=== PATIENT | male | born 1960 | race Caucasian/White ===

== ENCOUNTER 2020-01-31 09:19 | Outpatient (REF) | payer OTHER, SELFPAY ==
[2020-01-31 09:50] LABS: MANUAL DIFF FLAG NO
[2020-01-31 09:53] LABS: Basophils Absolute Auto 0.1 X10*3/uL (0.0-0.2); Basophils Percent Auto 0.8 % (0-2); Eosinophils Absolute Auto 0.2 X10*3/uL (0.0-0.4); Hematocrit 41.8 % (42-52); Hemoglobin 14.1 g/dl (14.0-18.0); Imm Gran Abs Auto 0.02 X10*3/uL (0.00-0.03); Imm Gran Pct Auto 0.3 % (0.0-0.4); Lymphocytes Absolute Auto 1.3 X10*3/uL (1.2-4.9); Lymphocytes Percent Auto 20.5 % (20-40); Mean Corpuscular HGB Conc 33.7 g/dl (31.0-36.0); Mean Corpuscular Hemoglobin 28.8 pg (27.0-33.0); Mean Corpuscular Volume 85.3 fL (80-98); Mean Platelet Volume 10.9 fL (9.4-12.4); Monocytes Absolute Auto 0.6 X10*3/uL (0.1-1.2); Neutrophils Percent Auto 65.4 % (45-73); Platelet Count 246 X10*3/uL (160-400); Red Cell Distribution Width 12.9 % (11.0-16.0); White Blood Count 6.1 X10*3/uL (4.8-10.8)
[2020-01-31 10:01] LABS: Glucose Urine UA 500 MG/DL (NEG); Leukocyte Esterase Urine NEG (NEG); Nitrite Urine NEG (NEG); Specific Gravity - Urine 1.025 (1.005-1.025); Urine Blood NEG (NEG); Urine Ketones NEG (NEG); Urine Protein 1+ MG/DL (NEG-TRACE)
[2020-01-31 10:07] LABS: Appearance Urine CLEAR; Color Urine YELLOW
[2020-01-31 10:17] LABS: Alanine Aminotransferase 21 U/L (0-40); Albumin Level 4.3 g/dL (3.5-5.0); Alkaline Phosphatase 66 U/L (39-117); Anion Gap 10 (12-20); Aspartate Amino Transferase 21 U/L (5-37); Bilirubin Total 0.7 mg/dL (0.0-1.0); Blood Urea Nitrogen 19 mg/dL (9-16); Carbon Dioxide 30 mmol/L (22-29); Chloride 105 mmol/L (96-108); Estimated Glomerular Filt Rate 51; Glucose Random 154 mg/dL (60-115); Potassium 4.7 mmol/l (3.3-5.1); Sodium 140 mmol/L (135-145); Total Protein 6.6 g/dL (6.5-8.0)
[2020-01-31 10:19] LABS: Calcium 9.4 mg/dL (8.4-10.2)
[2020-01-31 10:22] LABS: Creatinine Urine 170.22 mg/dL
[2020-01-31 10:42] LABS: Mucus Urine 1+ /LPF; RBC Urine 0-2 /HPF (0); WBC Urine 0 /HPF (0-4)
[2020-01-31 10:42] LABS: Thyroid Stimulating Hormone 1.71 mIU/mL (0.32-4.0)
== END 2020-01-31 09:20 | disposition home or self-care (01) ==
LOC: HO.LAB 09:19
PROVIDERS: PCP Internal Medicine; Visit Provider Internal Medicine
DX: Z12.5 Encounter for screening for malignant neoplasm of prostate (principal); E10.42 Type 1 diabetes mellitus with diabetic polyneuropathy; E10.22 Type 1 diabetes mellitus with diabetic chronic kidney disease; N18.30 Chronic kidney disease, stage 3 unspecified; E55.9 Vitamin D deficiency, unspecified
CPT/HCPCS: 36415; 80053; 81001; 81003; 82043; 82306; 84153; 84443; 85025

== ENCOUNTER → 2020-03-22 13:58 | Outpatient (BNVA) | payer OTHER, SELFPAY | PROVIDERS: Visit Provider Internal Medicine Cardiovascular Disease | DX: I45.10 Unspecified right bundle-branch block (principal); R06.00 Dyspnea, unspecified; E10.40 Type 1 diabetes mellitus with diabetic neuropathy, unspecified; E10.319 Type 1 diabetes mellitus with unspecified diabetic retinopathy without macular edema; E10.610 Type 1 diabetes mellitus with diabetic neuropathic arthropathy; F17.290 Nicotine dependence, other tobacco product, uncomplicated; Z79.899 Other long term (current) drug therapy; Z79.4 Long term (current) use of insulin | CPT/HCPCS: 93005 ==

== ENCOUNTER → 2020-04-11 08:29 | Outpatient (REF) | payer OTHER, SELFPAY ==
--- NOTE | 2020-04-11 08:32 | CA_ITS ---
Transthoracic Echocardiogram Patient (Last, First, Middle): Tulio Dillard W Gender: Male Date of : 1960 Age: 59 Procedure Date: 04/11/2020 Procedure Type: Transthoracic Echocardiogram Location: OP Height: 182.88 cm Weight: 97.07 kg BSA: 2.19 m2 Heart Rate: bpm BP: 112 / mmHg Material Clerk: MARCO Referring MD: Shine Serrano MD [employer]: Jamey Torres MD Symptoms: R06.00 - Dyspnea, unspecified Study Quality: Good ECG Rhythm: Sinus Conclusions: - 1. Normal LV systolic function with grade 1 diastolic dysfunction 2. Normal cardiac valvular Doppler 3. Normal RV systolic pressure 4. No pericardial effusion Findings Left Ventricle Normal left ventricular size, thickness, and systolic function. The visually estimated ejection fraction is between 60-65%. Spectral Doppler is indicative of an impaired relaxation filling pattern. E/E prime ratio is <8, consistent with normal filling pressures. Evidence suggests grade I (mild) diastolic dysfunction. Right Ventricle Normal right ventricular cavity size and systolic function. Atria Both atria are normal in size. There is no evidence of interatrial shunt. Aortic Valve Normal aortic valve structure and function. There is no aortic valve stenosis. There is no aortic valve regurgitation. Mitral Valve Normal mitral valve structure and function. There is trace mitral valve regurgitation. There is no mitral valve stenosis. Pulmonic Valve The pulmonic valve is likely normal. There is trace pulmonic valve regurgitation. Tricuspid Valve Normal tricuspid valve structure. There is trace tricuspid valve regurgitation. The right ventricular systolic pressure is normal. The right ventricular systolic pressure is 21 mmHg. Normal right atrial pressure. There is no evidence of pulmonary hypertension. Great Vessels All visible segments of the aorta are normal in size. The pulmonary artery was not well visualized. Venous The inferior vena cava is normal in size and collapses greater than 50% with inspiration. Pericardium/Pleural There is no evidence of pericardial effusion. Prior Study Comparison No prior study available for comparison. Measurements 2D Linear Measurements IVSd: 0.97 0.6-0.9/0.6-1.0 cm LVIDd: 5.27 3.9-5.3/4.2-5.9 cm LVIDd Index: 2.41 2.4-3.2/2.2-3.1 cm/m2 LVIDs: 3.61 2.0-3.6 cm LVPWd: 0.92 0.7-1.1 cm Ao Root: 2.80 2.1-3.5 cm LA Diam: 3.00 2.7-3.8/3.0-4.0 cm LAIDs Index: 1.37 1.5-2.3 cm/m2 LV Mass: 230.01 67-162/88-224 g LV Mass Index: 105.03 43-95/49-115 g/m2 LVOT Diam: 2.10 3.0+(-)1.3 cm 2D Systolic Function EF 4C: 68.20 >55% Mitral Valve MV Pk E: 0.47 MV PK A: 0.78 MV Decel Time: 176.00 E/A: 0.60 E'Lateral: 7.74 E'Medial: 6.29 E/E' Med: 7.40 E/E' Lat: 6.00 PHT: 52.00 MVA PHT: 4.23 Decel [place]er: 2.64 Aortic Valve AoV Pk Luis: 1.34 AoV Pk Grad: 7.00 LVOT LVOT Pk Luis: 0.91 LVOT Mn Luis: 0.63 LVOT VTI: 0.21 LVOT Pk Grad: 3.00 LVOT Mn Grad: 2.00 LVOT Diam: 2.10 LVOT Area: 3.46 Diastolic Function MV Pk E: 0.47 MV Pk A: 0.78 E/A: 0.60 E'Medial: 6.29 E/E' Med: 7.40 E' Laterial: 7.74 E/E' Lat: 6.00 Tricuspid Valve TR Pk Luis: 2.12 TR Pk Grad: 18.00 RA Press: 3.00 RVSP: 21.00 Great Vessels Aorta Ao Root-2D: 2.80 2.0-3.7 cm Ao Asc: 3.30 2.1-3.4 cm Updated in Other Vendor System with Status of Final Jamey Torres MD electronically signed on 04/12/2020 1:19:40 PM with status of Final
--- NOTE | 2020-04-11 09:30 | CA_ITS ---
Acquisition Time: 2020-04-11 10:50:23 Total Exercise Time: 00:05:25 Test Indications: Syncope Medications: SEE CHART Protocol: JOSHUA Max HR: 139 BPM 87% of Pred: 159 BPM Max BP: 142/070 mmHG Max Work Load: 7.0 METS Exercise stress test with exercise 5 min 25 sec of Joshua protocol, with moderate shortness of breath, no chest discomfort, with isolated PVCs in recovery, with normotensive response to exercise, without EKG changes meeting criteria for ischemia. Nuclear images pending. Test reviewed with Dr Torres. Referred By: Shine Serrano Overread By: RAHEL JOHNSON
--- NOTE | 2020-04-11 09:52 | NM_ITS ---
EXERCISE MYOCARDIAL PERFUSION STUDY INDICATION: Shortness of breath, diabetes, smoking, assess for coronary disease and ischemia TECHNIQUE: The patient was brought in for an exercise perfusion study on 04/11/2020. Patient performed exercise as per Jimmy protocol and was injected 30 mCi of sestamibi once target heart rate was achieved. Images were obtained using the SPECT gamma camera interlaced with the gating device. Images were obtained in supine position. Resting perfusion study was performed on 04/12/2020. Patient was administered 30 mCi of sestamibi intravenously at rest. Images were then obtained in supine position. Total DLP 126mGy-cm. Images were processed with the software and compared side to side in short axis, horizontal long axis and vertical long axis views. FINDINGS: Raw images were reviewed. The stress perfusion study showed no significant perfusion abnormality. Both uncorrected as well as CT attenuation corrected images were reviewed. The gated study shows normal LV systolic function with calculated LVEF of 71%. LV cavity is normal in size. The gated study shows normal wall thickening and contraction of segments. Resting study shows no significant perfusion abnormality. Gating at rest reveals normal wall motion with ejection fraction at 69%. The findings are consistent with no reversible or fixed perfusion abnormality. NM/NM cardiolite stress test IMPRESSION: 1. Myocardial perfusion imaging study shows normal myocardial perfusion. No evidence of any ischemia or infarction. 2. Gated LVEF is 71% during stress and 69% during rest. 3. Transient ischemic dilatation not present. EKG component of the test reported separately.
== END ==
LOC: HO.CARD 08:29
PROVIDERS: Visit Provider Internal Medicine Cardiovascular Disease
DX: R06.00 Dyspnea, unspecified (principal)
CPT/HCPCS: 78452; 93017; 93306; A9500

== ENCOUNTER → 2020-06-26 12:58 | Outpatient (BNVA) | payer OTHER, SELFPAY | PROVIDERS: Visit Provider Internal Medicine Cardiovascular Disease ==

== ENCOUNTER 2020-08-30 08:54 | Outpatient (REF) | payer OTHER, SELFPAY ==
[2020-08-30 10:25] LABS: Glucose Urine UA NEG (NEG); Leukocyte Esterase Urine NEG (NEG); Nitrite Urine NEG (NEG); PH 6.5 (5.0-8.0); Urine Blood NEG (NEG); Urine Ketones NEG (NEG); Urine Protein 1+ MG/DL (NEG-TRACE)
[2020-08-30 10:27] LABS: Appearance Urine CLEAR; Color Urine YELLOW
[2020-08-30 10:45] LABS: MANUAL DIFF FLAG NO
[2020-08-30 11:02] LABS: Basophils Absolute Auto 0.1 X10*3/uL (0.0-0.2); Basophils Percent Auto 0.9 % (0-2); Eosinophils Absolute Auto 0.2 X10*3/uL (0.0-0.4); Eosinophils Percent Auto 2.6 % (0-4); Hematocrit 44.8 % (42-52); Hemoglobin 15.1 g/dl (14.0-18.0); Imm Gran Abs Auto 0.04 X10*3/uL (0.00-0.03); Imm Gran Pct Auto 0.5 % (0.0-0.4); Lymphocytes Absolute Auto 1.7 X10*3/uL (1.2-4.9); Lymphocytes Percent Auto 22.8 % (20-40); Mean Corpuscular HGB Conc 33.7 g/dl (31.0-36.0); Mean Corpuscular Hemoglobin 28.2 pg (27.0-33.0); Mean Corpuscular Volume 83.6 fL (80-98); Mean Platelet Volume 11.6 fL (9.4-12.4); Monocytes Absolute Auto 0.6 X10*3/uL (0.1-1.2); Monocytes Percent Auto 7.7 % (2-11); Neutrophils Absolute Auto 4.9 X10*3/uL (2.0-8.3); Neutrophils Percent Auto 65.5 % (45-73); Platelet Count 276 X10*3/uL (160-400); Red Blood Count 5.36 X10*6/uL (4.60-5.80); Red Cell Distribution Width 13.3 % (11.0-16.0); White Blood Count 7.4 X10*3/uL (4.8-10.8)
[2020-08-30 11:04] LABS: Creatinine Urine 99.22 mg/dL; Microalbum/Creatinine Ratio Ur 294.2 ug/mg cr
[2020-08-30 11:10] LABS: RBC Urine 0 /HPF (0); Squamous Epithelial Cell Urine TRACE /LPF; WBC Urine 0-2 /HPF (0-4)
[2020-08-30 11:18] LABS: Alanine Aminotransferase 32 U/L (0-40); Albumin Level 4.3 g/dL (3.5-5.0); Alkaline Phosphatase 72 U/L (39-117); Anion Gap 12 (12-20); Aspartate Amino Transferase 28 U/L (5-37); Bilirubin Total 0.6 mg/dL (0.0-1.0); Blood Urea Nitrogen 19 mg/dL (9-16); Calcium 9.4 mg/dL (8.4-10.2); Carbon Dioxide 26 mmol/L (22-29); Chloride 106 mmol/L (96-108); Cholesterol 101 mg/dL; Estimated Average Glucose 151 mg/dL; Estimated Glomerular Filt Rate 60; Glucose Random 105 mg/dL (60-115); HDL Cholesterol 47 mg/dL; Hemoglobin A1c % 6.9 %; LDL Cholesterol Calculated 40 mg/dl; Potassium 4.3 mmol/L (3.3-5.1); Sodium 140 mmol/L (135-145); Total Protein 6.5 g/dL (6.5-8.0); Triglycerides 74 mg/dL
[2020-08-30 11:24] LABS: Thyroid Stimulating Hormone 2.09 uIU/mL (0.32-4.0)
[2020-08-30 11:26] LABS: HIV AB/AG Nonreactive (Nonreactive); HIV Num 1 0.08 S/CO (0.00-0.99)
[2020-08-31 06:51] LABS: LDL Cholesterol Direct 23 mg/dL (<100)
== END 2020-08-30 08:55 | disposition home or self-care (01) ==
LOC: HO.LAB 08:54
PROVIDERS: Absent Provider Internal Medicine; PCP Internal Medicine; Referring Provider Internal Medicine; Visit Provider Physician Assistant
DX: Z11.4 Encounter for screening for human immunodeficiency virus [HIV] (principal); E10.42 Type 1 diabetes mellitus with diabetic polyneuropathy; E10.22 Type 1 diabetes mellitus with diabetic chronic kidney disease; N18.30 Chronic kidney disease, stage 3 unspecified; E78.00 Pure hypercholesterolemia, unspecified
CPT/HCPCS: 36415; 80053; 80061; 81001; 82043; 83036; 83721; 84443; 85025; 87389

== ENCOUNTER 2022-01-10 12:04 | Outpatient (REF) | payer OTHER, SELFPAY ==
--- NOTE | ~2022-01-10 | XR_ITS ---
EXAMINATION: XR KNEE, LEFT CLINICAL INFORMATION: Pain COMPARISON: None TECHNIQUE: Four views of the left knee. FINDINGS: No acute fracture or dislocation. Probable meniscal calcifications. Vascular calcifications. No significant effusion. XR/XR knee LT 4V IMPRESSION: No acute finding.
== END 2022-01-10 12:05 | disposition home or self-care (01) ==
LOC: HO.HMGCX 12:04
PROVIDERS: PCP Internal Medicine
DX: M25.562 Pain in left knee (principal)
CPT/HCPCS: 73564

== ENCOUNTER 2022-03-28 07:44 | Day surgery (SDC) | payer MEDICARE, SELFPAY ==
[2022-03-22 13:57] VITALS: BMI 27.9
--- NOTE | 2022-03-27 12:46 | P.CONAN_ITS ---
Documented by User: Inessa Mcleod NP 03/27/22 12:56 HPI - Anesthesia Eval Consult details Narrative: 61yo M for Upper Endoscopy and Colonoscopy FORMERLY [facility], [facility] Active Problems Active Problems: All Active Problems (Updated 03/26/22 @ 12:34 by Lelia Gonzales RN) TUCKER (dyspnea on exertion) (Acute) RBBB (Acute) Left knee pain (Acute) Past Medical History Medical History Barretts esophagus Charcot's arthropathy Chronic renal insufficiency Diabetic neuropathy Elevated cholesterol Left knee pain RBBB (right bundle branch block) Retinopathy Sleep apnea Type 1 diabetes Family History Family History Mother Stomach cancer Father Prostate cancer Family/Other Breast cancer Family/Other Fistula Surgical History Surgical History H/O colonoscopy History of esophagogastroduodenoscopy (EGD) History of shoulder surgery History of tonsillectomy and adenoidectomy Social History Social History Alcohol intake: current Patient Tobacco Use Status: Never used Tobacco Use of substances other than those prescribed or required for medical reasons: No Are you DNR?: No Advance Directives: No Advance Directives Information Provided: Yes Meds Allergies Allergy/AdvReac Type Severity Reaction Status Date / Time amoxicillin Allergy Intermediate rash Verified 03/22/22 13:21 Home Medications Medication Instructions Recorded Confirmed Last Taken Type atorvastatin 10 mg tablet 10 mg PO DAILY 03/22/20 03/22/22 Unknown History insulin glargine 100 unit/mL 40 unit subcut DAILY 03/22/20 03/22/22 Unknown History subcutaneous solution insulin lispro 100 unit/mL 10 - 16 sliding scale dose subcut 03/22/20 03/22/22 Unknown History subcutaneous solution TIDAC losartan 25 mg tablet 25 mg PO DAILY 03/22/20 03/22/22 Unknown History omeprazole 20 mg capsule,delayed 20 mg PO DAILY 03/22/20 03/22/22 Unknown History release multivitamin 1 tab PO DAILY 03/26/22 03/26/22 Unknown History Exam Exam Date and Time: March 27, 2022 1246 Height,Weight and Vital Signs: Height 6 ft Weight 93.44 kg Narrative Narrative: ECHO 2019 Conclusions: - 1. Normal LV systolic function with grade 1 diastolic? dysfunction? 2. Normal cardiac valvular Doppler ? 3. Normal RV systolic pressure ? 4. No pericardial effusion ?? NM cardiolite stress test 2019 IMPRESSION: ? 1.? Myocardial perfusion imaging study shows normal myocardial perfusion. No evidence of any ischemia or infarction. 2.? Gated LVEF is 71% during stress and 69% during rest. 3. Transient ischemic dilatation not present. ? EKG component of the test reported separately. Assessment and Plan Assessment Anesthesia Assessment: Chart Reviewed Documented by User: Lisa Fairchild MD 03/28/22 08:57 PMFSH Past Medical History Medical History Barretts esophagus Charcot's arthropathy Chronic renal insufficiency Diabetic neuropathy Elevated cholesterol Left knee pain RBBB (right bundle branch block) Retinopathy Sleep apnea Type 1 diabetes Family History Family History Mother Stomach cancer Father Prostate cancer Family/Other Breast cancer Family/Other Fistula Surgical History Surgical History H/O colonoscopy History of esophagogastroduodenoscopy (EGD) History of shoulder surgery History of tonsillectomy and adenoidectomy History of Problems with Anesthesia: No Social History Social History Alcohol intake: current Patient Tobacco Use Status: Never used Tobacco Use of substances other than those prescribed or required for medical reasons: No Are you DNR?: No Advance Directives: No Advance Directives Information Provided: Yes Meds Allergies Allergy/AdvReac Type Severity Reaction Status Date / Time amoxicillin Allergy Intermediate rash Verified 03/22/22 13:21 Home Medications Medication Instructions Recorded Confirmed Last Taken Type atorvastatin 10 mg tablet 10 mg PO DAILY 03/22/20 03/22/22 Unknown History insulin glargine 100 unit/mL 40 unit subcut DAILY 03/22/20 03/22/22 Unknown History subcutaneous solution insulin lispro 100 unit/mL 10 - 16 sliding scale dose subcut 03/22/20 03/22/22 Unknown History subcutaneous solution TIDAC losartan 25 mg tablet 25 mg PO DAILY 03/22/20 03/22/22 Unknown History omeprazole 20 mg capsule,delayed 20 mg PO DAILY 03/22/20 03/22/22 Unknown History release multivitamin 1 tab PO DAILY 03/26/22 03/26/22 Unknown History Exam Airway Mallampati Class: II TM Dist: >3cm Loose/Missing/Broken Teeth: No Heart: RRR Lungs: CTA Assessment and Plan Assessment Anesthesia Assessment: Anesthesia Plan Discussed Final Anesthetic Review History of Problems with Anesthesia: No NPO: Yes ASA Class: III Final Preanesthetic Review: Meds/Allgs Chart Reviewed, Consent Obtained/Reviewed and Anes Risks/Benef Reviewed Patient Risk: Intermediate Procedure Risk: Intermediate Anesthetic Plan Anesthetic Plan: MAC: Disposition: Standard PACU
[2022-03-28 08:27] VITALS: BP 141/76; PULSE 90; RESP 16; TEMP 36.4; O2SAT 97
[2022-03-28] MEDS: Lactated Ringers 1,000 ML 100 ML IVCONT (08:31)
--- NOTE | 2022-03-28 08:38 | P.HPSUR_ITS ---
Pre-Procedural Eval Section A Date of Service: 03/28/22 Section B Chief Complaint: screening,reflux Relevant Family History (Specify if Yes): No Relevant Social History: None Present Medications: see Short Stay Collaborative assessment Medical History: Significant History ( Barretts esophagus Charcot's arthropathy Chronic renal insufficiency Diabetic neuropathy Elevated cholesterol Left knee pain RBBB (right bundle branch block) Retinopathy Sleep apnea Type 1 diabetes) History of Previous Operations: Relevant previous surgery/procedure and date(s) (H/O colonoscopy History of esophagogastroduodenoscopy (EGD) History of shoulder surgery History of tonsillectomy and adenoidectomy) Allergies: Allergies Allergy/AdvReac Type Severity Reaction Status Date / Time amoxicillin Allergy Intermediate rash Verified 03/22/22 13:21 Review of Systems Sugical H&P ROS: Negative: Constitution, Cardiovascular, Respiratory, Neurological, Psychiatric, Hem-Onc, Allergic/Immunologic, Gastrointestinal, Genitourinary, Musculoskeletal, Integumentary, Endocrine and Eyes/Ear s/Nose/Throat Exam Surgical H&P Exam: Normal: HEENT, Normal: Heart, Normal: Lungs, Normal: Extremities, Normal: Abdomen, Normal: Skin and Normal: Neurological Plan Diagnosis/Plan: Unchanged I have reviewed the history and physical and performed a pertinent physical examination on my patient. No changes have occurred unless specified. EGD due to prior barretts, and screening colonoscopy
--- NOTE | 2022-03-28 09:14 | W.PM.OPN ---
Operative Note Operative Note Date of Service: 03/28/22 Narrative: Operative Information Procedure Description: EGD, Colonoscopy Indication: GERD, colon screening Anesthesia: MAC FLEXIBLE TRANSORAL UPPER GASTROINTESTINAL ENDOSCOPY AND COLONOSCOPY PROCEDURE NOTE UPPER ENDOSCOPY Consent: Indications for the procedure and potential complications of bleeding, perforation, reaction to medications and missed diagnosis were discussed with the patient and informed consent was obtained. Instrument: Olympus GIF H 190 J mid size upper endoscope Monitoring: Vital signs and clinical assessment, continuous EKG monitoring, Pulse oximetry, Carbon Dioxide monitoring and blood pressure monitoring were done throughout the procedure. Procedure: The patient was placed in the left lateral decubitis position and pre-procedure medications were administered and a bite block was placed. The endoscope was inserted into the mouth and advanced under direct vision to the third part of duodenum. A careful inspection was made as the upper endoscope was withdrawn including a retroflexed examination of the proximal stomach; Findings and interventions are described below. Findings: Larynx:normal Esophagus: GE junction at 40 cm, diaphragm hiatus at 40 cm, single tongue of salmon pink tissue - WATS brushing and biopsy taken Stomach: Normal mucosa with few fundic gland polyps noted Grade 2 flap valve on retroflexed examination of the cardia. Duodenum: Normal bulb and descending duodenum Intervention: Biopsies as noted above, Brushings COLONOSCOPY Instrument: Olympus variable stiffness pediatric scope 190L Colonoscopy Monitoring: Vital signs and clinical assessment, continuous EKG monitoring, Pulse oximetry, Carbon Dioxide monitoring and blood pressure monitoring were done throughout the procedure. Colon withdrawal time was 10 minutes. Procedure: The patient was placed in the left lateral decubitis position and pre-procedure medications were administered. After a digital rectal examination of the ano-rectum, the video colonoscope was inserted into the rectum and advanced through the colon to the cecum/TI. The colonoscope was slowly withdrawn in a retrograde panoramic fashion and the colon mucosa was carefully examined including a retroflexed view of the rectum. Findings and interventions are described below. Procedure Difficulty: moderate, pressure needed Findings: Terminal Ileum-not intubated Cecum:normal Ascending Colon:x 2 sessile polyps, one measured 6-8 mm and removed with cold snare the other was 12-13 mm and removed with cold snare Transverse Colon -normal Descending Colon:normal Sigmoid Colon: mild to moderate diverticulosis Rectum: Retroflexion with small internal hemorrhoids, grade I, 10 mm sessile polyp removed with cold forceps Anorectum - normal Colon preparation: [place] Bowel Preparation Scale Right colon; 2 Transverse colon: 2 Left colon; 1 (0 = Unprepared colon segment with mucosa not seen due to solid stool that cannot be cleared. 1 = Portion of mucosa of the colon segment seen, but other areas of the colon segment not well seen due to staining, residual stool and/or opaque liquid. 2 = Minor amount of residual staining, small fragments of stool and/or opaque liquid, but mucosa of colon segment seen well. 3 = Entire mucosa of colon segment seen well with no residual staining, small fragments of stool or opaque liquid) Impression and Post Procedure Diagnosis: Endoscopy Findings: possible barretts Colonoscopy Findings: polyps internal hemorrhoids diverticular disease Plan: Await Pathology results Repeat Colonoscopy in 1-2 years due to left sided prep and polyps seen today or earlier if clinically indicated High fiber diet leaflet avoid straining at stool, epsom salts and sitz bath, anusol supps or cream future EGD depending on results, if no dysplasia then repeat EGD in 3-5 yrs Above findings were reviewed with the patient and relevant handouts were provided if indicated.
[2022-03-28 10:18] VITALS: BP 96/55; PULSE 77; RESP 16; TEMP 36.1; O2SAT 94
[2022-03-28 10:33] VITALS: PULSE 74; RESP 18; O2SAT 93
[2022-03-28 10:48] VITALS: BP 118/75; PULSE 75; RESP 18; TEMP 36.1; O2SAT 97
== END 2022-03-28 11:24 | disposition home or self-care (01) ==
PROVIDERS: PCP Internal Medicine; Visit Provider Internal Medicine Gastroenterology
PROC: (CPT 45385; principal; 2022-03-28 09:10)
DX: Z12.11 Encounter for screening for malignant neoplasm of colon (principal); D12.2 Benign neoplasm of ascending colon; D12.8 Benign neoplasm of rectum; K57.30 Diverticulosis of large intestine without perforation or abscess without bleeding; K64.0 First degree hemorrhoids; K21.9 Gastro-esophageal reflux disease without esophagitis; K22.70 Barrett's esophagus without dysplasia; K31.7 Polyp of stomach and duodenum; K44.9 Diaphragmatic hernia without obstruction or gangrene; E10.22 Type 1 diabetes mellitus with diabetic chronic kidney disease; N18.9 Chronic kidney disease, unspecified; M14.60 Charcot's joint, unspecified site; G47.33 Obstructive sleep apnea (adult) (pediatric); Z79.4 Long term (current) use of insulin; Z79.899 Other long term (current) drug therapy; Z88.0 Allergy status to penicillin
CPT/HCPCS: 45385; 45380; 43239; 88305

== ENCOUNTER → 2022-04-10 14:32 | Outpatient (BNVA) | payer MEDICARE, SELFPAY | PROVIDERS: PCP Internal Medicine; Visit Provider Nurse Practitioner Family | DX: K57.30 Diverticulosis of large intestine without perforation or abscess without bleeding (principal); K64.8 Other hemorrhoids; D12.2 Benign neoplasm of ascending colon; D12.8 Benign neoplasm of rectum; Z98.890 Other specified postprocedural states | CPT/HCPCS: 99212 ==

== ENCOUNTER → 2022-09-24 13:43 | Outpatient (BNVA) | payer MEDICARE, SELFPAY | PROVIDERS: PCP Internal Medicine; Visit Provider Surgery Vascular Surgery | DX: I73.9 Peripheral vascular disease, unspecified (principal); I65.23 Occlusion and stenosis of bilateral carotid arteries | CPT/HCPCS: 99212 ==

== ENCOUNTER 2022-10-09 14:25 | Outpatient (REF) | payer MEDICARE, SELFPAY ==
--- NOTE | ~2022-10-09 | US_ITS ---
EXAMINATION: NONINVASIVE ASSESSMENT OF THE ARTERIES OF BOTH LOWER EXTREMITIES WITH PVR EXAM AND BILATERAL LOWER EXTREMITY DUPLEX Mely Epstein MD CLINICAL INFORMATION: Peripheral vascular disease TECHNIQUE: Ankle pulse volume recordings, ankle pressure measurements and ankle brachial indices were obtained of the lower extremity arterial system bilaterally in addition to duplex Doppler techniques with wave form analysis and measurement of velocities in the common femoral, profunda femoral, superficial femoral, popliteal and tibial arteries. The study was performed only at rest. COMPARISON: None FINDINGS: a) AT REST: RIGHT LE. The right ankle-brachial index is: 1.67 * >0.97-1.25 = normal - no significant arterial disease * 0.75-0.96 = mild peripheral arterial disease * 0.5-0.74 = moderate peripheral arterial disease * <0.50 = severe peripheral arterial disease 2. Right ankle pressure: Elevated 3. Right ankle PVR waveform: normal. 4. Right direct duplex Doppler findings: Common femoral artery: 105 cm/s, Multiphasic Profunda femoris artery: 89 cm/s, Multiphasic Superficial femoral artery (proximal): 101 cm/s, Multiphasic Superficial femoral artery (mid): 123 cm/s, Multiphasic Superficial femoral artery (distal): 25 cm/s, Multiphasic Proximal Popliteal artery: 90 cm/s, Multiphasic Mid posterior tibial artery: 79 cm/s, Multiphasic LEFT LE. The left ankle-brachial index is: 1.68 * >0.97-1.25 = normal - no significant arterial disease * 0.75-0.96 = mild peripheral arterial disease * 0.5-0.74 = moderate peripheral arterial disease * <0.50 = severe peripheral arterial disease 2. Left ankle pressure: Elevated 3. Left ankle PVR waveform: normal. 4. Left direct duplex Doppler findings: Common femoral artery: 112 cm/s, Multiphasic Profunda femoris artery: 96 cm/s, Multiphasic Superficial femoral artery (proximal): 96 cm/s, Multiphasic Superficial femoral artery (mid): 99 cm/s, Multiphasic Superficial femoral artery (distal): 112 cm/s, Multiphasic Proximal Popliteal artery: 112 cm/s, Multiphasic Mid posterior tibial artery: 131 cm/s, monophasic US/US CHANDNI complete IMPRESSION: No hemodynamically significant stenoses in the bilateral lower extremities. There is generalized atherosclerotic disease and elevated ABIs suggesting atherosclerotic calcification.
--- NOTE | ~2022-10-09 | US_ITS ---
EXAMINATION: US EXTRACRANIAL CAROTID DUPLEX, BILATERAL CLINICAL INFORMATION: Occlusion/stenosis of bilateral carotid arteries COMPARISON: None available. TECHNIQUE: Real-time ultrasound and Doppler techniques (integrating B-mode 2-D vascular images, Doppler spectral analysis and color-flow Doppler imaging) were utilized to interrogate the extracranial carotid arteries, the vertebral arteries and proximal subclavian arteries bilaterally. The degree of stenosis is determined by criteria similar to NASCET. FINDINGS: Right Side: 1. There is mild atherosclerotic plaque seen in the bifurcation/proximal ICA region. 2. The common carotid artery PSV proximally is 160 cm/s and distally 160 cm/s. 3. The proximal internal carotid artery velocities are 81 cm/s systolic and 25 cm/s diastolic. 4. The proximal external carotid artery PSV is 102 cm/s. 5. The vertebral artery shows antegrade flow. 6. The subclavian artery waveforms are normal. Left Side: 1. There is mild atherosclerotic plaque seen in the bifurcation/proximal ICA region. 2. The common carotid artery PSV proximally is 125 cm/s and distally 144 cm/s. 3. The proximal internal carotid artery velocities are 77 cm/s systolic and 21 cm/s diastolic. 4. The proximal external carotid artery PSV is 89 cm/s. 5. The vertebral artery shows antegrade flow. 6. The subclavian artery waveforms are normal. US/US carotid duplex BI IMPRESSION: 1. RIGHT: Minimal, non-hemodynamically significant stenosis of the proximal right internal carotid artery corresponding to a 0-49% stenosis by velocity criteria. 2. LEFT: Minimal, non-hemodynamically significant stenosis of the proximal left internal carotid artery corresponding to a 0-49% stenosis by velocity criteria.
--- NOTE | ~2022-10-09 | US_ITS ---
EXAMINATION: NONINVASIVE ASSESSMENT OF THE ARTERIES OF BOTH LOWER EXTREMITIES WITH PVR EXAM AND BILATERAL LOWER EXTREMITY DUPLEX Mely Epstein MD CLINICAL INFORMATION: Peripheral vascular disease TECHNIQUE: Ankle pulse volume recordings, ankle pressure measurements and ankle brachial indices were obtained of the lower extremity arterial system bilaterally in addition to duplex Doppler techniques with wave form analysis and measurement of velocities in the common femoral, profunda femoral, superficial femoral, popliteal and tibial arteries. The study was performed only at rest. COMPARISON: None FINDINGS: a) AT REST: RIGHT LE. The right ankle-brachial index is: 1.67 * >0.97-1.25 = normal - no significant arterial disease * 0.75-0.96 = mild peripheral arterial disease * 0.5-0.74 = moderate peripheral arterial disease * <0.50 = severe peripheral arterial disease 2. Right ankle pressure: Elevated 3. Right ankle PVR waveform: normal. 4. Right direct duplex Doppler findings: Common femoral artery: 105 cm/s, Multiphasic Profunda femoris artery: 89 cm/s, Multiphasic Superficial femoral artery (proximal): 101 cm/s, Multiphasic Superficial femoral artery (mid): 123 cm/s, Multiphasic Superficial femoral artery (distal): 25 cm/s, Multiphasic Proximal Popliteal artery: 90 cm/s, Multiphasic Mid posterior tibial artery: 79 cm/s, Multiphasic LEFT LE. The left ankle-brachial index is: 1.68 * >0.97-1.25 = normal - no significant arterial disease * 0.75-0.96 = mild peripheral arterial disease * 0.5-0.74 = moderate peripheral arterial disease * <0.50 = severe peripheral arterial disease 2. Left ankle pressure: Elevated 3. Left ankle PVR waveform: normal. 4. Left direct duplex Doppler findings: Common femoral artery: 112 cm/s, Multiphasic Profunda femoris artery: 96 cm/s, Multiphasic Superficial femoral artery (proximal): 96 cm/s, Multiphasic Superficial femoral artery (mid): 99 cm/s, Multiphasic Superficial femoral artery (distal): 112 cm/s, Multiphasic Proximal Popliteal artery: 112 cm/s, Multiphasic Mid posterior tibial artery: 131 cm/s, monophasic US/US arterial duplex LE BI IMPRESSION: No hemodynamically significant stenoses in the bilateral lower extremities. There is generalized atherosclerotic disease and elevated ABIs suggesting atherosclerotic calcification.
== END 2022-10-09 14:26 | disposition home or self-care (01) ==
LOC: HO.US 14:25
PROVIDERS: PCP Internal Medicine; Visit Provider Surgery Vascular Surgery
DX: I65.23 Occlusion and stenosis of bilateral carotid arteries (principal); I73.9 Peripheral vascular disease, unspecified
CPT/HCPCS: 93880; 93923; 93925

== ENCOUNTER 2022-12-03 14:04 | Outpatient (AMB) | payer MEDICARE, SELFPAY ==
--- NOTE | 2022-12-03 14:15 | A.OFFVIS_ITS ---
Intake Vital Signs 12/03/22 14:16 Height 6 ft Weight 215 lb BMI 29.2 Intake Visit Reasons: follow up carotid US and Arterial US 10/21/22 Intake Note: follow up for carotid US & Arterial US 10/09/22, has Left charcot foot diagnosis, has walking boot and crutches today Accompanied by: Self / Same As Patient Allergies amoxicillin Allergy (Intermediate, Verified 12/03/22 14:20) rash HPI follow up carotid US and Arterial US 10/21/22 HPI Details Very pleasant 62-year-old gentleman presents for follow-up regarding carotid disease and peripheral vascular disease. Of note in the interim he has developed recurrent left lower extremity Charcot foot. 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 He now presents for follow-up with with noninvasive lower extremity arterial testing along with carotid testing. He has had no other interval issues. Of note he does report fairly good control of his diabetes. [facility] Medical History Barretts esophagus Charcot's arthropathy Chronic renal insufficiency Diabetic neuropathy Elevated cholesterol Left knee pain RBBB (right bundle branch block) Retinopathy Sleep apnea Type 1 diabetes Surgical History H/O colonoscopy History of esophagogastroduodenoscopy (EGD) History of shoulder surgery History of tonsillectomy and adenoidectomy Family History Mother Stomach cancer Father Prostate cancer Family/Other Breast cancer Family/Other Fistula Social History Alcohol intake: current Patient Tobacco Use Status: Never used Tobacco Physical Exam Vital Signs: BMI result Body Mass Index 29.2 Const General: cooperative, healthy appearing and no acute distress Orientation/consciousness: oriented to person, oriented to place and oriented to time HEENT Head: Yes normal to inspection Neck Carotids: no bruits Chest Chest palpation & inspection: normal inspection of the chest Resp Effort & Inspection: normal respiratory effort and able to speak in complete sentences Auscultation: clear to auscultation bilaterally Cardio Rate: regular rate Heart sounds: S1 normal heart sound present and S2 normal heart sound present GI Inspection: Yes normal to inspection Skin Other: Left leg immobility cast General skin exam: no rashes or lesions noted Wounds: no wounds Neuro General: oriented to person, oriented to place, oriented to time and CN's II-XI intact bilaterally Extrem General: Yes normal to inspection, Yes full ROM and Yes no clubbing, cyanosis or edema Psych Appearance: grossly normal and well kempt Speech and movement: Normal speech and movement present Affect: normal affect Results Reviewed Results Reviewed: Noninvasive arterial testing dated 10/09/2022 demonstrates CHANDNI on the right of 1.67 and on the left of 1.68 and on direct ultrasound no evidence of stenosis. Numbers are artifactually elevated due to calcification. But testing is within normal limits. Written report and images were reviewed. Noninvasive carotid testing dated 10/09/2022 demonstrates bilateral 0-49% stenosis. Written report and images were reviewed. Assessment & Plan Assessment & Plan (1) PAD (peripheral artery disease): Code(s): I73.9 - Peripheral vascular disease, unspecified Plan: In short his arterial disease is stable at the current time. Due to his history of Charcot foot along with longstanding diabetes of nearly 55 years would recommend annual surveillance for this. We will schedule him for annual follow- up with us. Should there be any interval issues happy to see him back sooner. We did have an extensive discussion about risk factor modification. (2) Carotid stenosis, bilateral: Code(s): I65.23 - Occlusion and stenosis of bilateral carotid arteries Plan: Current time carotids are within normal limits. At the current time we did discuss risk factor modification. Would not recommend any surveillance follow- up at the current time. He will be following up with us for lower extremity arterial disease. Thank you for allowing us to assist in his care. Orders: Orders US arterial duplex LE BI 364 Days I73.9 - Peripheral vascular disease, unspecified Coding Level of Care Code Est Pt Level 4 (85581) Diagnoses PAD (peripheral artery disease) I73.9 Carotid stenosis, bilateral I65.23
[2022-12-03 14:16] VITALS: BMI 29.2
== END 2022-12-03 14:50 | disposition home or self-care (01) ==
PROVIDERS: PCP Internal Medicine; Visit Provider Surgery Vascular Surgery
DX: I73.9 Peripheral vascular disease, unspecified (principal); I65.23 Occlusion and stenosis of bilateral carotid arteries; M14.672 Charcot's joint, left ankle and foot
CPT/HCPCS: 99213

== ENCOUNTER → 2022-12-03 14:04 | Outpatient (BNVA) | payer MEDICARE, SELFPAY | PROVIDERS: PCP Internal Medicine; Visit Provider Surgery Vascular Surgery | DX: I73.9 Peripheral vascular disease, unspecified (principal); I65.23 Occlusion and stenosis of bilateral carotid arteries; E11.9 Type 2 diabetes mellitus without complications | CPT/HCPCS: 99212 ==

== ENCOUNTER 2023-04-11 14:57 | Outpatient (AMB) | payer MEDICARE, SELFPAY ==
--- NOTE | 2023-04-11 15:02 | MHC.OFFVIS ---
Intake Vital Signs 04/11/23 15:04 Height 6 ft Weight 200 lb 2.876 oz BMI 27.1 BP 96/54 L Blood Pressure Location Lt brachial Position Sitting Pulse 80 Intake Visit Reasons: 1 yr follow up Intake Note: Patient returns to in office one year follow up for colonoscopy screening. CC: Patient reports doing fine and denies having any GI concerns today. 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 Patient will need to repeat colonoscopy in 1-2 years due to suboptimal prep on the left side of the colon. Discussed with patient the importance of early colorectal screening in his blood relatives. Diverticulosis Diverticulosis found on colonoscopy. Patient was encouraged to increase fiber in his diet. I will also send script for MiraLax for him so he can take it every day Status post colonoscopy Patient denies any ill effects from the prep, anesthesia procedure itself. Two tubular adenoma found without high-grade dysplasia or carcinoma. Due to suboptimal prep he will return for colorectal screening in 1 year and we will discuss with him going for colonoscopy then. He will call us sooner if he will have any GI concerning symptoms. He is agreeable to this plan and verbalizes understanding of instructions. He was given the opportunity to ask questions and all questions answered. ? Thank you for allowing me to participate in his care Plan Medications New polyethylene glycol 3350 (Miralax) 17 grams PO DAILY 510 grams 2RF TODAY'S VISIT Patient is here today for follow-up and to discuss going for colonoscopy. As mentioned above patient had suboptimal prep and needs to have colonoscopy repeated. Patient reports that he feels like he is moving his bowels without any issues. Patient denies any issues with anesthesia in the past. History of sleep apnea, not using CPAP.. Not on any anticoagulation medication. Patient is on insulin and will need to use have of the Lantus night before and 2 nights before the procedure. Continues taking MiraLax and magnesium daily. [facility] Medical History Elevated cholesterol Barretts esophagus Charcot's arthropathy RBBB (right bundle branch block) Chronic renal insufficiency Retinopathy Diabetic neuropathy Type 1 diabetes Sleep apnea Left knee pain Surgical History History of tonsillectomy and adenoidectomy History of esophagogastroduodenoscopy (EGD) H/O colonoscopy History of shoulder surgery Family History Mother Stomach cancer Father Prostate cancer Family/Other Breast cancer Family/Other Fistula Social History Alcohol intake: current Patient Tobacco Use Status: Never used Tobacco Review of Systems Const Denies weight gain and Denies weight loss ENT Reports no additional complaints, Denies dysphagia and Denies odynophagia Card Reports no additional complaints Resp Reports no additional complaints GI Denies abdominal pain, Denies belching, Denies melena, Denies bloating, Denies change in bowel habits, Denies dysphagia, Denies excessive flatus, Denies dyspepsia, Denies heartburn, Denies diarrhea, Denies loose stools, Denies nausea, Denies odynophagia and Denies vomiting Reports no additional complaints Musc Reports no additional complaints Neuro Reports no additional complaints Psych Reports no additional complaints Endo Reports no additional complaints Physical Exam Vital Signs: Last Vital Signs Pulse 80 04/11/23 15:04 BP 96/54 L 04/11/23 15:04 BMI result Body Mass Index 27.1 Const General: healthy appearing, no acute distress and well developed Nutritional Appearance: well nourished Orientation/consciousness: patient oriented x3 HEENT Head: Yes normal to inspection, Yes normocephalic and Yes atraumatic Face and sinus: Yes normal facial exam Mouth: Normal oral and palatal mucosa present Throat: Yes posterior oropharynx normal, Yes tonsils normal and Yes uvula midline Eyes General: appearance normal, both eyes and all related structures Neck Neck: Yes normal visual inspection, Yes full ROM and Yes trachea midline Thyroid: Thyroid normal Resp Effort & Inspection: normal respiratory effort, able to speak in complete sentences, no tracheal deviation and symmetric chest movement Auscultation: clear to auscultation bilaterally Cardio Rate: regular rate GI Inspection: Yes normal to inspection and No distended Palpation (GI): Soft to palpation, not firm, nontender and No hepatosplenomegaly present Auscultation: normal bowel sounds General: Yes no CVA tenderness Back/Spine/Pelvis Back: no CVA tenderness Skin General skin exam: elasticity normal, turgor normal and dry skin Neuro General: patient oriented x3 Psych Appearance: grossly normal Mental Status: mental status grossly normal Affect: normal affect Assessment & Plan Assessment & Plan (1) Tubular adenoma: Code(s): D36.9 - Benign neoplasm, unspecified site (2) Diverticulosis: Code(s): K57.90 - Diverticulosis of intestine, part unspecified, without perforation or abscess without bleeding Plan Please schedule patient for colonoscopy. Prep discussed with patient. Patient will take Dulcolax tablets starting 7 days before the procedure in the evening. 4 tablets of Dulcolax day before procedure at noon time followed by split MiraLax prep. Patient will administer half of the dose of Lantus 2 nights and 1 night before the procedure. Upper endoscopy will be repeated end of 2024 to follow-up Patel's. Last upper endoscopy was normal. Patient has a history of sleep apnea, not using CPAP machine. Did well last endoscopy and colonoscopy. Orders: Orders Complete Blood Count no Diff 04/11/23 K21.9 - Gastro-esophageal reflux disease without esophagitis Comprehensive Met. Panel 04/11/23 K21.9 - Gastro-esophageal reflux disease without esophagitis Medications: New magnesium oxide 400 mg PO BEDTIME 30 caps 2RF K59.04 - Chronic idiopathic constipation magnesium oxide 400 mg PO BEDTIME 90 caps 2RF K59.04 - Chronic idiopathic constipation Coding Level of Care Code Est Pt Level 3 (06735) Diagnoses Tubular adenoma D36.9 Diverticulosis K57.90 Time Spent (min) 30 Comment 20 minutes spent with patient and additional 10 minutes spent reviewing his records
[2023-04-11 15:04] VITALS: BP 96/54; PULSE 80; BMI 27.1
== END 2023-04-11 15:51 | disposition home or self-care (01) ==
PROVIDERS: Visit Provider Nurse Practitioner Family
DX: D36.9 Benign neoplasm, unspecified site (principal); K57.90 Diverticulosis of intestine, part unspecified, without perforation or abscess without bleeding
CPT/HCPCS: 99213

== ENCOUNTER → 2023-04-11 14:57 | Outpatient (BNVA) | payer MEDICARE, SELFPAY | PROVIDERS: Visit Provider Nurse Practitioner Family | DX: K57.90 Diverticulosis of intestine, part unspecified, without perforation or abscess without bleeding (principal); D36.9 Benign neoplasm, unspecified site | CPT/HCPCS: 99212 ==

== ENCOUNTER 2023-08-19 06:13 | Day surgery (SDC) | payer MEDICARE, SELFPAY ==
[2023-08-15 14:29] VITALS: BMI 27.1
--- NOTE | 2023-08-15 15:12 | HO.ANESPROP2 ---
Documented by User: Inessa Mcleod NP 08/15/23 15:13 HPI - Anesthesia Eval Consult details Narrative: 62yo M for Colonoscopy PMFSH Active Problems Active Problems: All Active Problems Carotid stenosis, bilateral (Acute) PAD (peripheral artery disease) (Acute) TUCKER (dyspnea on exertion) (Acute) RBBB (Acute) Left knee pain (Acute) Past Medical History Medical History Elevated cholesterol Barretts esophagus Charcot's arthropathy RBBB (right bundle branch block) Chronic renal insufficiency Retinopathy Diabetic neuropathy Type 1 diabetes Sleep apnea Left knee pain Family History Family History Mother Stomach cancer Father Prostate cancer Family/Other Breast cancer Family/Other Fistula Surgical History Surgical History History of tonsillectomy and adenoidectomy History of esophagogastroduodenoscopy (EGD) H/O colonoscopy History of shoulder surgery History of Problems with Anesthesia: No Social History Social History Alcohol intake: current Patient Tobacco Use Status: Current someday Tobacco user Tobacco use type: Cigar Use of substances other than those prescribed or required for medical reasons: No Are you DNR?: No Advance Directives: No Advance Directives Information Provided: Yes Meds Allergies Allergy/AdvReac Type Severity Reaction Status Date / Time amoxicillin Allergy Intermediate rash Verified 08/19/23 06:36 lisinopril AdvReac Intermediate dry cough Verified 08/19/23 06:36 Home Medications ?Medication ?Instructions ?Recorded ?Confirmed ?Last Taken ?Type atorvastatin 10 mg tablet 10 mg PO DAILY 03/22/20 03/22/22 Unknown History insulin lispro 100 unit/mL 10 - 16 sliding scale dose subcut 03/22/20 03/22/22 Unknown History subcutaneous solution TIDAC losartan 25 mg tablet 25 mg PO DAILY 03/22/20 03/22/22 Unknown History omeprazole 20 mg capsule,delayed 20 mg PO DAILY 03/22/20 03/22/22 Unknown History release multivitamin 1 tab PO DAILY 03/26/22 03/26/22 Unknown History cholecalciferol (vitamin D3) 25 25 mcg PO DAILY 12/03/22 Unknown History mcg (1,000 unit) capsule insulin glargine 100 unit/mL 24 unit subcut DAILY 04/11/23 Unknown History subcutaneous solution (Lantus U-100 Insulin) vit B complex 100 combo no.2 100 tab PO 04/11/23 Unknown History mg tablet,extended release (Balanced B-100 Complex) Exam Height,Weight and Vital Signs: Height 6 ft Weight 90.718 kg Assessment and Plan Assessment Anesthesia Assessment: Chart Reviewed Final Anesthetic Review History of Problems with Anesthesia: No Documented by User: Alex Jasso MD 08/19/23 07:53 [facility] Past Medical History Medical History Elevated cholesterol Barretts esophagus Charcot's arthropathy RBBB (right bundle branch block) Chronic renal insufficiency Retinopathy Diabetic neuropathy Type 1 diabetes Sleep apnea Left knee pain Family History Family History Mother Stomach cancer Father Prostate cancer Family/Other Breast cancer Family/Other Fistula Family history of problems with anesthesia: No Surgical History Surgical History History of tonsillectomy and adenoidectomy History of esophagogastroduodenoscopy (EGD) H/O colonoscopy History of shoulder surgery Social History Social History Alcohol intake: current Patient Tobacco Use Status: Current someday Tobacco user Tobacco use type: Cigar Use of substances other than those prescribed or required for medical reasons: No Are you DNR?: No Advance Directives: No Advance Directives Information Provided: Yes Meds Allergies Allergy/AdvReac Type Severity Reaction Status Date / Time amoxicillin Allergy Intermediate rash Verified 08/19/23 06:36 lisinopril AdvReac Intermediate dry cough Verified 08/19/23 06:36 Home Medications ?Medication ?Instructions ?Recorded ?Confirmed ?Last Taken ?Type atorvastatin 10 mg tablet 10 mg PO DAILY 03/22/20 03/22/22 Unknown History insulin lispro 100 unit/mL 10 - 16 sliding scale dose subcut 03/22/20 03/22/22 Unknown History subcutaneous solution TIDAC losartan 25 mg tablet 25 mg PO DAILY 03/22/20 03/22/22 Unknown History omeprazole 20 mg capsule,delayed 20 mg PO DAILY 03/22/20 03/22/22 Unknown History release multivitamin 1 tab PO DAILY 03/26/22 03/26/22 Unknown History cholecalciferol (vitamin D3) 25 25 mcg PO DAILY 12/03/22 Unknown History mcg (1,000 unit) capsule insulin glargine 100 unit/mL 24 unit subcut DAILY 04/11/23 Unknown History subcutaneous solution (Lantus U-100 Insulin) vit B complex 100 combo no.2 100 tab PO 04/11/23 Unknown History mg tablet,extended release (Balanced B-100 Complex) Exam Airway Mallampati Class: II TM Dist: >3cm Neck ROM: Full Assessment and Plan Assessment Anesthesia Assessment: Anesthesia Plan Discussed Final Anesthetic Review Family History of Problems with Anesthesia: No NPO: Yes ASA Class: II and III Final Preanesthetic Review: No Changes in Pt Med Stat, Meds/Allgs Chart Reviewed, Consent Obtained/Reviewed and Anes Risks/Benef Reviewed Patient Risk: Intermediate Procedure Risk: Low Anesthetic Plan Anesthetic Plan: MAC: Disposition: Standard PACU
--- NOTE | 2023-08-19 06:28 | P.HPSUR_ITS ---
Pre-Procedural Eval Section A - 24 Hr Update-Section A only Date of Service: 08/19/23 Section B - Complete if H&P > 30 days Chief Complaint: screening Relevant Family History (Specify if Yes): No Relevant Social History: Other (specify) (occ cigar) Present Medications: see Short Stay Collaborative assessment Medical History: Significant History (Elevated cholesterol Barretts esophagus Charcot's arthropathy RBBB (right bundle branch block) Chronic renal insufficiency Retinopathy Diabetic neuropathy Type 1 diabetes Sleep apnea Left knee pain) History of Previous Operations: Relevant previous surgery/procedure and date(s) (History of tonsillectomy and adenoidectomy History of esophagogastroduodenoscopy (EGD) H/O colonoscopy History of shoulder surgery) Allergies: Allergies Allergy/AdvReac Type Severity Reaction Status Date / Time amoxicillin Allergy Intermediate rash Verified 04/11/23 15:07 lisinopril AdvReac Intermediate dry cough Verified 04/11/23 15:07 Review of Systems Sugical H&P ROS: Negative: Constitution, Cardiovascular, Respiratory, Neur ological, Psychiatric, Hem-Onc, Allergic/Immunologic, Gastrointestinal, Genitourinary, Musculoskeletal, Integumentary, Endocrine and Eyes/Ears/Nose/Throat Exam Surgical H&P Exam: Normal: HEENT, Normal: Heart, Normal: Lungs, Normal: Extremities, Normal: Abdomen, Normal: Skin and Normal: Neurological Plan Diagnosis/Plan: Unchanged I have reviewed the history and physical and performed a pertinent physical examination on my patient. No changes have occurred unless specified. Time Spent With Patient Time: Total time managing care of this patient today ____ minutes.
[2023-08-19 06:38] VITALS: BMI 27.0
[2023-08-19 06:45] VITALS: BP 115/67; PULSE 74; RESP 16; TEMP 36.1; O2SAT 96
[2023-08-19] MEDS: Lactated Ringers 1,000 ML 100 ML IVCONT (07:00)
[2023-08-19 07:23] LABS: Glucose, Whole Blood 208 mg/dL (60-115)
--- NOTE | 2023-08-19 07:41 | P.OPN-COLO_ITS ---
Colonoscopy Operative Note Operative Note Date of Service: 08/19/23 Narrative: Operative Information Procedure Description: Colonoscopy Indication: screening Anesthesia: MAC COLONOSCOPY Instrument: Olympus variable stiffness pediatric scope 190L Colonoscopy Monitoring: Vital signs and clinical assessment, continuous EKG monitoring, Pulse oximetry, Carbon Dioxide monitoring and blood pressure monitoring were done throughout the procedure. Colon withdrawal time was 7 minutes. Procedure: The patient was placed in the left lateral decubitis position and pre-procedure medications were administered. After a digital rectal examination of the ano-rectum, the video colonoscope was inserted into the rectum and advanced through the colon to the cecum/TI. The colonoscope was slowly withdrawn in a retrograde panoramic fashion and the colon mucosa was carefully examined including a retroflexed view of the rectum. Findings and interventions are described below. Procedure Difficulty: easy Findings: Terminal Ileum-normal Cecum:normal Ascending Colon: normal Transverse Colon -normal Descending Colon:normal Sigmoid Colon: moderate diverticulosis Rectum: Retroflexion with small internal hemorrhoids seen, grade I, 4-5 mm sessile polyp removed with cold forceps Anorectum - normal Intervention: cold forceps polypectomy Colon preparation: [place] Bowel Preparation Scale Right colon; 2 Transverse colon: 2 Left colon; 2 (0 = Unprepared colon segment with mucosa not seen due to solid stool that cannot be cleared. 1 = Portion of mucosa of the colon segment seen, but other areas of the colon segment not well seen due to staining, residual stool and/or opaque liquid. 2 = Minor amount of residual staining, small fragments of stool and/or opaque liquid, but mucosa of colon segment seen well. 3 = Entire mucosa of colon segment seen well with no residual staining, small fragments of stool or opaque liquid) Impression and Post Procedure Diagnosis: diverticulosis colon polyp internal hemorrhoids Plan: High fiber diet leaflet Avoid straining at stool, epsom salts and sitz bath, anusol supps or cream Repeat Colonoscopy in 5 years due to Hx of polyps or earlier if clinically indicated Above findings were reviewed with the patient and relevant handouts were provided if indicated.
[2023-08-19 08:03] VITALS: BP 90/50; PULSE 63; RESP 12; TEMP 36.8; O2SAT 96
[2023-08-19 08:18] VITALS: BP 106/62; PULSE 65; RESP 16; TEMP 36.8; O2SAT 96
== END 2023-08-19 08:39 | disposition home or self-care (01) ==
PROVIDERS: PCP Internal Medicine; Visit Provider Internal Medicine Gastroenterology
PROC: 0DJD8ZZ Inspection of Lower Intestinal Tract, Via Natural or Artificial Opening Endoscopic (ICD-10-PCS; CPT 45378; principal; 2023-08-19 07:30)
DX: Z12.11 Encounter for screening for malignant neoplasm of colon (principal); K62.1 Rectal polyp; K57.30 Diverticulosis of large intestine without perforation or abscess without bleeding; K64.8 Other hemorrhoids; Z86.010 Personal history of colon polyps; E10.22 Type 1 diabetes mellitus with diabetic chronic kidney disease; N18.9 Chronic kidney disease, unspecified; Z88.0 Allergy status to penicillin
CPT/HCPCS: 45380; 82947; 88305; J2704

== ENCOUNTER → 2023-08-19 06:13 | Outpatient (BNV) | payer MEDICARE, SELFPAY | PROVIDERS: PCP Internal Medicine; Visit Provider Internal Medicine Gastroenterology | DX: Z12.11 Encounter for screening for malignant neoplasm of colon (principal); K63.5 Polyp of colon; K57.30 Diverticulosis of large intestine without perforation or abscess without bleeding; K64.0 First degree hemorrhoids | CPT/HCPCS: 45380 ==